=== PATIENT | male | born 1995 | race African-American/Black ===

== ENCOUNTER 2016-08-12 13:25 | Emergency (ER) | payer BC ==
[2016-08-12 13:37] VITALS: BP 118/72; PULSE 67; TEMP 97.8; BMI 26.3
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
[2016-08-12] MEDS ORDERED: IBUPROFEN 600 MG TABLET (FP) PO ONE ×2 (14:42→14:51)
[2016-08-12] MEDS ORDERED: AMOX TR/POT CLAV 875MG/125MG TABLETS (FP) ONE (14:43)
[2016-08-12] MEDS ORDERED: DIPHTH,PERTUSS(ACELL),TET 0.5 ML DISP.SYRIN IM ONE (14:51)
[2016-08-12] MEDS ORDERED: AMOX TR/POT CLAV 875MG/125MG TABLETS (FP) PO ONE (14:51)
== END 2016-08-12 15:01 | disposition home or self-care (01) ==
LOC: JERFT 13:25
PROC: 3E0234Z Introduction of Serum, Toxoid and Vaccine into Muscle, Percutaneous Approach (ICD-10-PCS; principal; 2016-08-12)
PROC: 0CQ0XZZ Repair Upper Lip, External Approach (ICD-10-PCS; 2016-08-12)
DX: S01.511A Laceration without foreign body of lip, initial encounter (principal); Y04.0XXA Assault by unarmed brawl or fight, initial encounter; Y93.89 Activity, other specified; Y92.89 Other specified places as the place of occurrence of the external cause
CPT/HCPCS: 90715; 99281-25

== ENCOUNTER 2017-08-07 20:37 | Emergency (ER) | payer BC ==
[2017-08-07 21:12] VITALS: BP 117/70; PULSE 70; TEMP 98.7; BMI 23.6
[2017-08-07] MEDS ORDERED: IBUPROFEN 600 MG TABLET (FP) PO ONE ×2 (21:20→21:21)
--- NOTE | 2017-08-07 21:20 | PDOC ---
History of Present Illness - General History Source: Patient Exam Limitations: No Limitations - History of Present Illness Initial Comments: 08/07/17 21:29 The patient is a 22 year old male who presents to the emergency department for evaluation of abscess on left buttock. The patient reports a 3 day history of moderate pain secondary to perianal abscess. He describes the pain as constant and is exacerbated with walking or sitting. He reports associated symptoms of subjective fever and tension headache. Of note, the patient reports previous history of abscess on buttocks in a different location other than today. The patient denies chest pain, shortness of breath, and dizziness. Denies chills, nausea, vomiting, diarrhea, and constipation. Denies dysuria, frequency, urgency, and hematuria. PAST MEDICAL HISTORY: History of abscesses on buttocks. PAST SURGICAL HISTORY: no significant history FAMILY HISTORY: no pertinent history SOCIAL HISTORY: Pt lives with family and is employed. MEDICATIONS: reviewed ALLERGIES: As per nursing notes ROS General: (+)fevers. No chills, no weakness, no weight loss HEENT: No change in vision. No sore throat,. No ear pain Cardiovascular: No chest pain or shortness of breath Respiratory:No cough, or wheezing. Gastrointestinal: no nausea, vomiting, diarrhea or constipation, No rectal bleeding Genitourinary: No dysuria, hematuria, or frequency Musculoskeletal: (+)Left buttock pain. No joint or muscle pain or swelling Neurologic: (+)Headache. No vertigo, dizziness or loss of consciousness Psychiatric: nor depression Skin: (+)Left buttcheek abscess. No rashes or easy bruising Endocrine: no increased thirst or abnormal weight change Allergic: no skin or latex allergy All other systems reviewed and normal PE GENERAL: The patient is awake, alert, and fully oriented, in no acute distress. HEAD: Normal with no signs of trauma. EYES: Pupils equal, round and reactive to light, extraocular movements intact, sclera anicteric, conjunctiva clear. MUSCULOSKELETAL: (+)Left buttock, 5x5cm pointing abscess with small amount of drainage. Increased erythema and warmth to the area. Tenderness to palpation. EXTREMITIES: Normal range of motion, no edema. NEUROLOGICAL: Normal speech, normal gait. PSYCH: Normal mood, normal affect. SKIN: Warm, Dry, normal turgor, no rashes or lesions noted. <Eben Genao - Last Filed: 08/07/17 21:29> - General History Source: Patient Exam Limitations: No Limitations - History of Present Illness Initial Comments: 08/07/17 22:00 A portion of this note was documented by scribe services under my direction. I have reviewed the details of the note, within reason, and agree with the documentation. The case summary and management plan written by me. Assessment and plan: This is a 22-year-old male who comes in complaining of an abscess to his left buttock cheek. Patient is had approximately 2 days. Procedure note incision and drainage abscess abscess was anesthetized with 1% lidocaine no epinephrine approximately 1 mL. Abscess was opened approximately one centimeters with a #11 blade Moderate amount of purulent discharge was drained from the abscess Loculations were broken up using a forceps Patient was very comfortable throughout the procedure and refused to let me to put the packing in. Procedure was stopped at that point and patient was given some ibuprofen and we will reattempt to with some packing into the abscess cavity once the ibuprofen is had a chance to take effect. Post giving a patient break I was able to place the packing and a sterile dressing was applied. Patient discharged home <Mavis To I - Last Filed: 08/07/17 22:02> - General Chief Complaint: Abscess Boil Stated Complaint: ABSCESS Time Seen by Provider: 08/07/17 20:54 Past History <Eben Genao - Last Filed: 08/07/17 21:29> - Past Medical History Anemia: No COPD: No Diabetes: No HTN: No - Surgical History Abdominal Surgery: No - Immunization History Immunization Up to Date: Yes - Suicide/Smoking/Psychosocial Hx Smoking Status: No Smoking History: Never smoked Have you smoked in the past 12 months: No Number of Cigarettes Smoked Daily: 2 Cigars Per Day: 0 Information on smoking cessation initiated: No Hx Alcohol Use: Yes (SOCIAL) Drug/Substance Use Hx: Yes (MARIJUANA) Substance Use Type: Marijuana <Mavis To I - Last Filed: 08/07/17 22:02> - Past Medical History Allergies/Adverse Reactions: Allergies Allergy/AdvReac Type Severity Reaction Status Date / Time No Known Allergies Allergy Verified 08/07/17 21:00 Home Medications: Ambulatory Orders Sulfamethoxazole/Trimethoprim [Bactrim DS -] 1 tab PO BID #14 tablet 08/07/17 *Physical Exam - Vital Signs Last Vital Signs Temp Pulse Resp BP Pulse Ox 98.7 F 70 16 117/70 100 08/07/17 20:39 08/07/17 20:39 08/07/17 20:39 08/07/17 20:39 08/07/17 20:39 <Eben Genao - Last Filed: 08/07/17 21:29> - Vital Signs Last Vital Signs Temp Pulse Resp BP Pulse Ox 98.7 F 70 16 117/70 100 08/07/17 20:39 08/07/17 20:39 08/07/17 20:39 08/07/17 20:39 08/07/17 20:39 <Mavis To I - Last Filed: 08/07/17 22:02> ED Treatment Course - Medications Given in the ED: ED Medications Discontinued Medications Generic Name Dose Route Start Last Admin Trade Name Tuanq PRN Reason Stop Dose Admin Ibuprofen 600 mg 08/07/17 21:21 08/07/17 21:22 Motrin - PO 08/07/17 21:22 600 mg ONCE ONE Administration <Eben Genao - Last Filed: 08/07/17 21:29> *DC/Admit/Observation/Transfer - Attestations Scribe Attestion: Documentation prepared by Eben Genao, acting as medical imaging technologist for Mavis To MD. <Eben Genao - Last Filed: 08/07/17 21:29> - Discharge Dispostion Decision to Admit order: No <Mavis To I - Last Filed: 08/07/17 22:02> Diagnosis at time of Disposition: Abscess - Discharge Dispostion Disposition: HOME Condition at time of disposition: Good - Patient Instructions Printed Discharge Instructions: DI for Incision and Drainage of a Skin Abscess Additional Instructions: Remove the packing from the area tomorrow evening before bed after E remove the packing start hot soaks to the area as described by the doctor. Due the hot soaks 15-20 minutes at a time 2-3 times a day for the next 3-4 days. Take Bactrim 1 tablet twice a day for the next 7 days. Return to the emergency department immediately with ANY new, persistent or worsening symptoms. Continue any medications as previously prescribed by your physician. You should follow up with your primary doctor as soon as possible regarding today's emergency department visit. . Please make sure your doctor reviews the results of your emergency evaluation. Thank you for coming to the Emergency Department today for your care. It was a pleasure to see you today. Please note that your evaluation is INCOMPLETE until you follow-up with your doctor. - Post Discharge Activity Forms/Work/School Notes: Back to Work
[2017-08-07] MEDS ORDERED: SULFAMETHOXAZOLE/TRIMETHOPRIM 800MG/160MG D.S. TABLET PO ONE (22:00)
[2017-08-07] MEDS ORDERED: SULFAMETHOXAZOLE/TRIMETHOPRIM 800MG/160MG D.S. TABLET ONE (22:01)
== END 2017-08-07 22:04 | disposition home or self-care (01) ==
LOC: FER 20:37
PROC: 0H98XZZ Drainage of Buttock Skin, External Approach (ICD-10-PCS; principal; 2017-08-07)
DX: L02.31 Cutaneous abscess of buttock (principal)
CPT/HCPCS: 99282-25

== ENCOUNTER 2018-06-23 01:34 | Emergency (ER) | payer BC ==
[2018-06-23 01:40] VITALS: BP 120/68; PULSE 76; TEMP 97.3; BMI 29.0
--- NOTE | 2018-06-23 01:40 | PDOC ---
History of Present Illness - General Chief Complaint: Pain, Acute Stated Complaint: BOIL ON RIGHT LEG X ONE WEEK Time Seen by Provider: 06/23/18 01:39 History Source: Patient Exam Limitations: No Limitations - History of Present Illness Initial Comments: 06/23/18 01:52 This is a 23-year-old male who comes in complaining of a boil on his right posterior upper thigh area patient has had it for several weeks. Patient said that it did open up and drained somewhat but still is painful. Patient otherwise denies any fevers chills or any other complaints. Allergies: as per nursing notes Past Medical History: none Social history: Lives with family. No smoking. No alcohol. No illicit drugs. Surgical history: None General: No fevers or chills, no weakness, no weight loss HEENT: No change in vision. No sore throat,. No ear pain CardioVascular: no chest discomfort. No shortness of breath Respiratory:No cough, or wheezing. Gastrointestinal: no nausea, vomiting, diarrhea or constipation, No rectal bleeding Genitourinary: No dysuria, hematuria, or frequency Musculoskeletal: No joint or muscle pain or swelling, boil on right leg Neurologic: No headache, vertigo, dizziness or loss of consciousness Psychiatric: nor depression Skin: No rashes or easy bruising Endocrine: no increased thirst or abnormal weight change Allergic: no skin or latex allergy All other systems reviewed and normal GENERAL: The patient is awake, alert, and fully oriented, in no acute distress. HEAD: Normal with no signs of trauma. EYES: Pupils equal, round and reactive to light, extraocular movements intact, sclera anicteric, conjunctiva clear. EXTREMITIES:atraumatic, Normal range of motion, no edema. Right posterior leg there is a area of tenderness and erythema that appears to have opened up and drained spontaneously however there does appear to still be some infection within the cavity. NEUROLOGICAL: Normal speech, normal gait. PSYCH: Normal mood, normal affect. SKIN: Warm, Dry, normal turgor, no rashes or lesions noted. Procedure note incision and drainage of abscess Abscess was anesthetized with 1% lidocaine no epinephrine Abscess was opened with a #11 blade Small amount of purulent fluid was drained. Loculations were broken up and 1/4 inch iodoform packing was placed in the cavity Dressing applied a sugar tolerated well Past History - Past Medical History Allergies/Adverse Reactions: Allergies Allergy/AdvReac Type Severity Reaction Status Date / Time No Known Allergies Allergy Verified 06/23/18 01:35 Home Medications: Ambulatory Orders NK [No Known Home Medication] 06/23/18 Anemia: No COPD: No Diabetes: No HTN: No - Surgical History Abdominal Surgery: No - Immunization History Immunization Up to Date: Yes - Suicide/Smoking/Psychosocial Hx Smoking Status: No Smoking History: Never smoked Have you smoked in the past 12 months: No Number of Cigarettes Smoked Daily: 2 Cigars Per Day: 0 'Breaking Loose' booklet given: 08/07/17 Hx Alcohol Use: Yes (SOCIAL) Drug/Substance Use Hx: Yes (MARIJUANA) Substance Use Type: None *DC/Admit/Observation/Transfer Diagnosis at time of Disposition: Abscess - Discharge Dispostion Disposition: HOME Condition at time of disposition: Stable - Referrals - Patient Instructions Printed Discharge Instructions: DI for Skin Abscess Additional Instructions: Remove the packing material this evening. Start hot soaks as described by Tylenol or Motrin as needed for pain. Purchase an antibacterial soap and use the soap for showering to help cut down on the amount of bacteria on your skin and help prevent abscesses in the future. Return to the emergency department immediately with ANY new, persistent or worsening symptoms. Continue any medications as previously prescribed by your physician. You should follow up with your primary doctor as soon as possible regarding today's emergency department visit. . Please make sure your doctor reviews the results of your emergency evaluation. Thank you for coming to the Emergency Department today for your care. It was a pleasure to see you today. Please note that your evaluation is INCOMPLETE until you follow-up with your doctor. - Post Discharge Activity Forms/Work/School Notes: Back to Work
[2018-06-23] MEDS ORDERED: ACETAMINOPHEN 500 MG TABLET (FP) PO ONE (01:52)
[2018-06-23] MEDS ORDERED: ACETAMINOPHEN 500 MG TABLET (FP) ONE (01:52)
== END 2018-06-23 02:01 | disposition home or self-care (01) ==
LOC: FER 01:34
DX: L02.419 Cutaneous abscess of limb, unspecified (principal); Z72.0 Tobacco use
CPT/HCPCS: 99281-25